=== PATIENT | male | born 1950 | race Caucasian/White ===

== ENCOUNTER 2019-03-29 08:27 | Day surgery (SDC) | payer OTHER, BC ==
[2019-03-14 10:18] VITALS: BMI 33.0
[2019-03-29] MEDS ORDERED: PHENYLEPHRINE 2.5% OPHTH SOLN 15 ML BOTTLE ONE (08:40)
[2019-03-29] MEDS ORDERED: TROPICAMIDE 1% OPHTH SOLN 15 ML BOTTLE ONE (08:40)
[2019-03-29] MEDS ORDERED: KETOROLAC TROMETHAMINE 0.5% EYE DROP 1 DROP DROPS ONE (08:40)
[2019-03-29] MEDS ORDERED: CYCLOPENTOLATE HCL 1% OPHTH SOLN 2 ML BOTTLE ONE (08:40)
[2019-03-29] MEDS ORDERED: OFLOXACIN 0.3% OPHTHALMIC SOLUTION 5 ML BOTTLE ONE (08:40)
[2019-03-29] MEDS: OFLOXACIN 0.3% OPHTHALMIC SOLUTION 5 ML BOTTLE OD SCH ×5 (08:55→09:15)
[2019-03-29] MEDS: KETOROLAC TROMETHAMINE 0.5% EYE DROP 1 DROP DROPS OD SCH ×5 (08:55→09:15)
[2019-03-29] MEDS: TROPICAMIDE 1% OPHTH SOLN 15 ML BOTTLE OD SCH ×5 (08:55→09:15)
[2019-03-29] MEDS: PHENYLEPHRINE 2.5% OPHTH SOLN 15 ML BOTTLE OD SCH ×5 (08:55→09:15)
[2019-03-29] MEDS: CYCLOPENTOLATE HCL 1% OPHTH SOLN 2 ML BOTTLE OD SCH ×5 (08:55→09:15)
[2019-03-29] MEDS ORDERED: BACITRACIN/POLYMYXIN OPH OINT 3.5 GM TUBE ONE (09:35)
[2019-03-29] MEDS ORDERED: TETRACAINE 0.5% OPHTH SOLN 2 ML BOTTLE ONE (09:35)
[2019-03-29] MEDS ORDERED: BETAXOLOL HCL 0.25% OPHTHALMIC 10 ML DROPSBTL ONE (09:35)
[2019-03-29] MEDS ORDERED: EPI-SHUGARCAINE (EPINEPHRINE 0.025% & LIDOCAINE-PF 0.75%) 4ML ONE (09:35)
[2019-03-29] MEDS ORDERED: NEO/POLYMYX B SULF/DEXAMETH OPHTHALMIC 5ML BOTTLE ONE (09:36)
[2019-03-29] MEDS ORDERED: POVIDONE-IODINE 5% OPHTHALMIC PREP 30 ML SOLUTION ONE (09:36)
[2019-03-29] MEDS ORDERED: MIDAZOLAM HCL 2 MG/2 ML SINGLE DOSE VIAL ONE (10:16)
[2019-03-29] MEDS ORDERED: TRYPAN BLUE 0.5 ML DISP.SYRIN ONE (10:25)
[2019-03-29] MEDS ORDERED: ACETAMINOPHEN 325 MG TABLET (FP) PO PRN (11:35)
[2019-03-29 11:43] VITALS: TEMP 98.5
[2019-03-29 12:20] VITALS: BP 127/68; PULSE 66
--- NOTE | 2019-03-29 14:02 | OP ---
DATE OF OPERATION: 03/29/2019 PREOPERATIVE DIAGNOSIS: Cataract, right eye. POSTOPERATIVE DIAGNOSIS: Cataract, right eye, miotic pupil. PROCEDURE: Cataract extraction via phacoemulsification with insertion of posterior chamber lens implant, right eye, miotic pupil with use of iris retractors. SURGEON: Bladimir Braun MD BOXCAR WEIGHER: Brandi Rodgers MD ANESTHESIA: Topical with sedation. ESTIMATED BLOOD LOSS: Less than 1 mL. COMPLICATIONS: None. SPECIMENS: None. PROCEDURE: The patient was identified in the holding area. After all risks, benefits, and alternatives were explained to the patient, informed consent was obtained. The right eye was marked with a marking pen. The patient then entered the operating room on an eye stretcher. After a formal timeout was performed, topical tetracaine eyedrops were instilled onto the right eye. The right eye was then prepped and draped in the usual sterile fashion. An eyelid speculum was placed beneath the eyelids of the right eye. It was then observed that the pupil was about 4 mm in diameter. Therefore, a supratemporal paracentesis incision was created using a 15-degree blade. Topical preservative-free epinephrine was injected into the anterior chamber. The pupil still did not dilate, so therefore it was determined to place 5 equally-spaced paracentesis incisions on the cornea and insert one iris retractor through each of the 5 paracentesis incisions to capture and dilate the pupil to about 6 or 7 mm. Then, it was noted that there was a very dull red reflex. Therefore, trypan blue was used, so an air bubble was injected into the anterior chamber and trypan blue was then used to stain the anterior capsule beneath the air bubble. BSS was then used to irrigate out the excess trypan blue and air bubble and viscoelastic was then injected into the anterior chamber. A 2.4-mm keratome blade then was used to make infratemporal incision. A 360-degree continuous curvilinear capsulorhexis was then created using a bent cystitome and Utrata forceps. Hydrodissection was performed using balanced saline solution on a cannula. Phacoemulsification was introduced to dissemble and remove the nucleus in its entirety. Irrigation/aspiration was then used to remove any remaining cortical material from the eye and the capsular bag was reformed using viscoelastic. An Saroj model [id number] with a power of 15.5 diopters serial number [id number] was inspected, found to be defect-free, and injected into the capsular bag. Irrigation/aspiration was then used to remove any remaining viscoelastic from the eye. All iris retractors were removed from the eye, totaling 5. Then, another irrigation/aspiration procedure was used to remove any excess debris and viscoelastic from the eye. Then, all wounds were hydrated with balanced salt solution and noted to be watertight. There was a red reflex present. The anterior chamber was deep. The eye had an adequate pressure and the lens was perfectly centered in the capsular bag. Topical antibiotic eyedrops and ointment were then administered to the right eye. The eyelid speculum was removed from the right eye. The right eye was shielded. The patient tolerated the procedure well, and left the operating room in stable condition, to follow up in the [facility] tomorrow morning at 10:00. BLADIMIR BRAUN M.D. [id number]
== END 2019-03-29 12:25 | disposition home or self-care (01) ==
LOC: FASU 08:27
PROVIDERS: ATTEND Ophthalmology
PROC: 08RJ3JZ Replacement of Right Lens with Synthetic Substitute, Percutaneous Approach (ICD-10-PCS; principal; 2019-03-29 10:00)
DX: H26.9 Unspecified cataract (principal); H57.03 Miosis

== ENCOUNTER 2019-04-05 08:37 | Day surgery (SDC) | payer OTHER, BC ==
[2019-03-14 11:39] VITALS: BMI 33.0
[~2019-04-05 08:37] MED LIST: CYCLOPENTOLATE HCL 1% OPHTH SOLN 2 ML BOTTLE OS SCH; KETOROLAC TROMETHAMINE 0.5% EYE DROP 1 DROP DROPS OS SCH; OFLOXACIN 0.3% OPHTHALMIC SOLUTION 5 ML BOTTLE OS SCH; PHENYLEPHRINE 2.5% OPHTH SOLN 15 ML BOTTLE OS SCH; TROPICAMIDE 1% OPHTH SOLN 15 ML BOTTLE OS SCH
[2019-04-05] MEDS: CYCLOPENTOLATE HCL 1% OPHTH SOLN 2 ML BOTTLE ONE ×5 (09:10→09:30)
[2019-04-05] MEDS: OFLOXACIN 0.3% OPHTHALMIC SOLUTION 5 ML BOTTLE ONE ×5 (09:10→09:30)
[2019-04-05] MEDS: PHENYLEPHRINE 2.5% OPHTH SOLN 15 ML BOTTLE ONE ×5 (09:10→09:30)
[2019-04-05] MEDS: KETOROLAC TROMETHAMINE 0.5% EYE DROP 1 DROP DROPS ONE ×5 (09:10→09:30)
[2019-04-05] MEDS: TROPICAMIDE 1% OPHTH SOLN 15 ML BOTTLE ONE ×5 (09:10→09:30)
[2019-04-05] MEDS ORDERED: MIDAZOLAM HCL 2 MG/2 ML SINGLE DOSE VIAL ONE ×2 (09:50→10:02)
[2019-04-05] MEDS ORDERED: BETAXOLOL HCL 0.25% OPHTHALMIC 10 ML DROPSBTL ONE (09:54)
[2019-04-05] MEDS ORDERED: POVIDONE-IODINE 5% OPHTHALMIC PREP 30 ML SOLUTION ONE (09:54)
[2019-04-05] MEDS ORDERED: BACITRACIN/POLYMYXIN OPH OINT 3.5 GM TUBE ONE (09:54)
[2019-04-05] MEDS ORDERED: EPI-SHUGARCAINE (EPINEPHRINE 0.025% & LIDOCAINE-PF 0.75%) 4ML ONE (09:54)
[2019-04-05] MEDS ORDERED: TETRACAINE 0.5% OPHTH SOLN 2 ML BOTTLE ONE (09:54)
[2019-04-05] MEDS ORDERED: NEO/POLYMYX B SULF/DEXAMETH OPHTHALMIC 5ML BOTTLE ONE (09:55)
[2019-04-05] MEDS ORDERED: ISOSULFAN BLUE 10 MG/ML VIAL SQ ONE (10:17)
[2019-04-05] MEDS ORDERED: TRYPAN BLUE 0.5 ML DISP.SYRIN ONE (10:25)
[2019-04-05 11:17] VITALS: TEMP 98.3
[2019-04-05 12:02] VITALS: BP 116/67; PULSE 63
--- NOTE | 2019-04-05 15:44 | OP ---
DATE OF OPERATION: 04/05/2019 AGE: [age] years old. SEX: Male. PREOPERATIVE DIAGNOSIS: Cataract, left eye. POSTOPERATIVE DIAGNOSIS: Cataract, left eye. PROCEDURE: Cataract extraction via phacoemulsification with insertion of posterior chamber lens implant, left eye, using iris retractors for pupillary miosis. SURGEON: Bladimir Braun MD SEAT JOINER: Brandi Rodgers MD ANESTHESIA: Topical with sedation. ESTIMATED BLOOD LOSS: Less than 1 mL. COMPLICATIONS: None. SPECIMENS: None. PROCEDURE: The patient was identified in the holding area. After all the risks, benefits and alternatives were explained to the patient, informed consent was obtained. The left eye was marked with a marking pen. The patient then entered the operating room on an eye stretcher. After formal timeout was performed, topical tetracaine eyedrops were instilled onto the left eye. The left eye was then prepped and draped in the usual sterile fashion. An eyelid speculum was placed beneath the eyelids of the left eye. It was noted that the pupil was miotic, about 4 mm, therefore, an inferotemporal paracentesis incision was created using a 15-degree blade. Topical preservative-free epinephrine and preservative-free lidocaine was then injected into the anterior chamber. The pupil did not dilate any more significantly, therefore 5 equally spaced paracentesis incisions were made using a 15-degree blade and an iris retractor was inserted through each of the 5 paracentesis incisions to capture and dilate the pupil to about 6 to 7 mm. Then viscoelastic was injected into the anterior chamber. A 2.4-mm keratome blade was then used to make a superotemporal incision. A 360-degree continuous curvilinear capsulorrhexis was then created using bent cystotome and Utrata forceps. Hydrodissection was performed using balanced saline solution on a cannula. Phacoemulsification was introduced to disassemble and remove the nucleus in its entirety. Irrigation/aspiration was then used to remove any remaining cortical material from the eye. The capsular bag was reformed using viscoelastic. An Saroj model [id number] with a power of 15.5 diopters, serial number [id number], was inspected and found to be defect free and injected in the capsular bag. Irrigation/aspiration was then used to remove any remaining viscoelastic from the eye. The anterior chamber was reformed using viscoelastic. Then all iris retractors were removed from the eye, totaling 5. Then a final irrigation/aspiration was then used to remove any remaining viscoelastic from the eye and any remaining debris. All wounds were hydrated with balanced saline solution, noted to be watertight. The anterior chamber was deep, the pupil was round, the lens was perfectly centered in the capsular bag, there was a red reflex present, and the eye had adequate pressure. Topical antibiotic eyedrops and ointment were then administered to the left eye. The eyelid speculum was removed from the left eye. The left eye was shielded. The patient tolerated the procedure well and left the operating room in stable condition, to follow up in the eye clinic tomorrow morning at 10 o'clock. BLADIMIR BRAUN M.D. [id number]
== END 2019-04-05 12:00 | disposition home or self-care (01) ==
LOC: FASU 08:37
PROVIDERS: ATTEND Ophthalmology
PROC: 08RK3JZ Replacement of Left Lens with Synthetic Substitute, Percutaneous Approach (ICD-10-PCS; principal; 2019-04-05 10:00)
DX: H26.9 Unspecified cataract (principal); H57.03 Miosis

== ENCOUNTER 2022-05-22 09:29 | Emergency (ER) | payer BC, OTHER ==
[2022-05-22] MEDS ORDERED: ASPIRIN 81 MG CHEWABLE TABLETS ONE ×2 (09:43→10:09)
[2022-05-22] MEDS ORDERED: SODIUM CHLORIDE 0.9% 500 ML INFUS.BAG IV ONE (09:47)
[2022-05-22 09:51] VITALS: RESP 18; BMI 36.1
[2022-05-22] MEDS ORDERED: HEPARIN NA (PORCINE) 5,000 UNITS/ML 1ML VIAL IVPUSH PRN ×2 (09:53)
[2022-05-22] MEDS ORDERED: CLOPIDOGREL BISULFATE 300 MG TABLET PO ONE (09:53)
[2022-05-22] MEDS ORDERED: HEPARIN SOD,PORK IN 0.45% NACL 25,000 UNITS/500 ML INFUS.BAG IVPB SCH (10:00)
[2022-05-22 10:05] LABS: HEMATOCRIT 43.6 % (35.4-49); HEMOGLOBIN 14.9 G/dL (11.7-16.9); MCH 31.8 pg (25.7-33.7); MCHC 34.2 g/dl (32.0-35.9); MEAN CELL VOLUME 92.9 fl (80-96); MEAN PLT VOLUME 8.5 fl (7.5-11.1); PLATELET COUNT 150.1 10^3/uL (134-434); RBC 4.69 10^6/uL (4.00-5.60); RDW 13.9 % (11.9-15.9); WHITE BLOOD COUNT 5.7 10^3/uL (4.0-10.8)
[2022-05-22] MEDS ORDERED: CLOPIDOGREL BISULFATE 300 MG TABLET ONE (10:06)
[2022-05-22] MEDS ORDERED: HEPARIN INFUSION - 25,000 UNITS/500 ML INFUS.BAG IVPB ONE (10:07)
[2022-05-22 10:18] LABS: ALBUMIN 4.6 g/dl (3.4-5.0); BILIRUBIN,TOTAL 0.9 mg/dl (0.2-1); CALCIUM 9.1 mg/dl (8.5-10); CREATININE 1.2 mg/dl (0.55-1.3)
[2022-05-22 10:23] VITALS: TEMP 98.8
[2022-05-22 10:26] VITALS: BP 150/68; PULSE 81
[2022-05-22 10:31] LABS: INR 1.03 (0.83-1.09); PROTHROMBIN TIME (PATIENT) 11.8 SEC (9.7-13.0)
[2022-05-22 10:34] LABS: ACTIVATED PTT 30.9 SECONDS (25.2-36.5)
== END 2022-05-22 10:59 | disposition short-term general hospital (02) ==
LOC: FER 09:29
PROC: 3E033GC Introduction of Other Therapeutic Substance into Peripheral Vein, Percutaneous Approach (ICD-10-PCS; principal; 2022-05-22)
DX: I21.3 ST elevation (STEMI) myocardial infarction of unspecified site (principal)
CPT/HCPCS: 0241U-QW; 36415; 71045-TC-FY; 80053; 84484; 85027; 85610; 85730; 93005; 99291